=== PATIENT | male | born 1985 | race Two or more races ===

== ENCOUNTER 2020-10-13 20:46 | Emergency (ER) | payer SELFPAY ==
[~2020-10-13] VITALS: Ht 172.7 cm; Wt 79.2 kg
[~2020-10-13 20:46] MED LIST: ERYTHROMYCIN OPHTH 0.5%, 1GM RIGHTEYE ONE
[2020-10-13] MEDS ORDERED: PROPARACAINE OPHTH 0.5%, 15ML ONE (21:09)
[2020-10-13] MEDS ORDERED: FLUORESCEIN OPHTHALMIC 1 MG STRIP ONE (21:09)
--- NOTE | 2020-10-13 21:12 | NUR ---
pt states he hit his rt eye with a crowbar when he was breaking a peice of wood at 5 pm today. pt states he only sees whiteness out of that eye
[2020-10-13] MEDS ORDERED: OXYcodone/APAP 5/325MG TABLET ONE (21:26)
[2020-10-13] MEDS ORDERED: OXYcodone/APAP 5/325MG TABLET PO ONE (21:30)
[2020-10-13] MEDS ORDERED: PROPARACAINE OPHTH 0.5%, 15ML EACHEYE ONE (21:30)
[2020-10-13] MEDS ORDERED: PHENYLEPHRINE OPHTH 2.5%, 2.5ML LEFTEYE ONE (22:00)
[2020-10-13] MEDS ORDERED: TROPICAMIDE OPHTH 1%, 15ML OP ONE (22:00)
--- NOTE | 2020-10-13 22:08 | NUR ---
MEDICATED FOR PAIN PT IN NAD
[2020-10-13] MEDS ORDERED: AMPICILLIN/SULBACTAM 1,500 MG in SODIUM CHLORIDE 0.9% 50 ML IV ONE (22:30)
[2020-10-13] MEDS ORDERED: VANCOMYCIN PER PHARMACY MC ONE (22:30)
[2020-10-13] MEDS ORDERED: DIPH,PERTUSS(ACELL),TET VAC/PF 0.5 ML IM-VACC ONE ×2 (22:30→22:39)
[2020-10-13] MEDS ORDERED: VANCOMYCIN 2,000 MG in SODIUM CHLORIDE 0.9% 500 ML IV ONE (23:00)
[2020-10-13 23:11] VITALS: BP 144/86
--- NOTE | 2020-10-13 23:18 | NUR ---
PIV PLACED IV ABX STARTED AT THIS TIME AWAITING [facility] TO [facility]
[2020-10-14] MEDS ORDERED: MOXIFLOXACIN OPHTH O.5%, 3ML RIGHTEYE SCH (08:00)
== END 2020-10-14 00:34 | disposition short-term general hospital (02) ==
LOC: ED 21:43
DX: S05.21XA Ocular laceration and rupture with prolapse or loss of intraocular tissue, right eye, initial encounter (principal); S05.91XA Unspecified injury of right eye and orbit, initial encounter; H53.131 Sudden visual loss, right eye; X58.XXXA Exposure to other specified factors, initial encounter; Y93.89 Activity, other specified; Y92.89 Other specified places as the place of occurrence of the external cause; Y99.8 Other external cause status
CPT/HCPCS: 70480; 90471; 90715; 96365; 96375; 99291; J0295; J3370; J7040